=== PATIENT | female | born 1970 | race Caucasian/White ===

== ENCOUNTER 2021-03-14 09:26 | Outpatient (CLI) | payer OTHER ==
[~2021-03-14] VITALS: Ht 167.6 cm; Wt 106.6 kg
[2021-03-14 09:41] VITALS: BP 128/67
[2021-03-14] MEDS ORDERED: ONDANSETRON 4 MG/2 ML (SDV) Z0FRAN IV PRN (09:45)
[2021-03-14] MEDS ORDERED: BAMLANIVIMAB 700 MG/ETESEVIMAB 1,400 MG IN NS IV ONE ×3 (09:45)
[2021-03-14] MEDS ORDERED: EPINEPHrine INJECTION 1 MG/ML AMP IM PRN (09:45)
[2021-03-14] MEDS ORDERED: diphenhydrAMINE 50 MG/ML INJ (BENADRYL) IV PRN (09:45)
[2021-03-14] MEDS ORDERED: ACETAMINOPHEN 500 MG TAB (TYLENOL) PO PRN (09:45)
[2021-03-14 11:11] VITALS: BP 109/73
== END 2021-03-14 11:14 | disposition home or self-care (01) ==
LOC: INFUSION 09:26
PROVIDERS: ATTEND Nurse Practitioner Community Health
DX: U07.1 COVID-19 (principal)